=== PATIENT | female | born 1970 | race Caucasian/White ===

== ENCOUNTER → 2021-11-18 14:38 | Outpatient (CLI) | payer OTHER, SELFPAY ==
[2021-11-18 17:22] LABS: Free T4, Direct Thyroxine 1.15 ng/dL (0.78-2.19)
[2021-11-18 17:36] LABS: Thyroid Stimulating Hormone 2.52 uIU/mL (0.47-4.68)
== END ==
PROVIDERS: Physician Assistant Medical; Referring Provider Surgery; Visit Provider Surgery
DX: R53.83 Other fatigue (principal); R63.5 Abnormal weight gain
CPT/HCPCS: 36415; 84439; 84443

== ENCOUNTER → 2022-01-06 10:34 | Outpatient (CLI) | payer OTHER, SELFPAY ==
--- NOTE | 2022-01-06 10:36 | DI.US.S_ITS ---
PROCEDURE: US PELVIC COMPLETE INDICATIONS: PELVIC PAIN TECHNIQUE: Real-time scanning was performed of the pelvic organs, with image documentation. Additional endovaginal scanning was necessary due to incomplete visualization of the adnexal and endometrial structures by transabdominal scanning. COMPARISON: None. FINDINGS: Uterus: Uterus is anteverted and enlarged in size at 8.1 x 6.5 x 4.5 cm. The myometrium is heterogeneous. 2.5 x 2.4 x 2.1 cm subserosal fibroid is seen in right anterior myometrium. 2.3 x 2.4 x 1.8 cm pedunculated subserosal fibroid is seen in left anterior myometrium. 2.9 x 3.7 x 2.6 cm subserosal fibroid is seen in posterior myometrium near midline. The endometrium measures 6.2 mm combined thickness. No gross endometrial mass or fluid is seen. Ovaries: Right ovary is not visualized on this study. No gross right adnexal mass is seen. Left ovary measures 2.6 x 2.2 x 2 cm in size and is within normal limits. Less than 12 follicles can be seen in left ovary. No adnexal masses are seen. Other: No pathologic free abdominal or pelvic fluid. IMPRESSION: 1. Enlarged uterus with multiple uterine fibroids as above. No endometrial mass or fluid. 2. Normal appearing left ovary. Right ovary is not well seen on this study, no gross adnexal mass. We strive to produce accurate, complete, and clear reports of imaging services. To assist us in improving patient care, this report was composed using standard report templates and voice recognition software. Therefore, it may contain abnormal punctuation, insertions and/or omissions. Occasional wrong-word or sound-alike substitutions may occur. Though we review the report and make efforts to correct it, we do recommend that the report be read carefully in proper context to recognize any text inaccuracies. Dictated by: Jasvir Gaviria M.D. on 01/06/2022 at 14:37 Approved by: Jasvir Gaviria M.D. on 01/06/2022 at 14:39
--- NOTE | 2022-01-06 10:36 | DI.MG.S_ITS ---
BILATERAL DIGITAL SCREENING MAMMOGRAM 3D/2D WITH CAD: 01/06/2022 CLINICAL: Routine screening. Baseline exam. No prior exams were available for comparison. The tissue of both breasts is heterogeneously dense. This may lower the sensitivity of mammography. Current study was also evaluated with a Computer Aided Detection (CAD) system. No significant masses, calcifications, or other findings are seen in either breast. IMPRESSION: NEGATIVE There is no mammographic evidence of malignancy. A 1 year screening mammogram is recommended. This exam was interpreted at Station ID: [id number]. NOTE: For mammograms, a report in lay terms will be sent to the patient. Approximately 15% of breast malignancies will not be visualized mammographically. In the management of a palpable breast mass, a negative mammogram must not discourage biopsy of a clinically suspicious lesion. Electronically Signed By: Roosevelt mercado/carlos:01/06/2022 17:46:10 letter sent: Normal Exam ACR BI-RADS Category 1: Negative [id number]
== END ==
PROVIDERS: Referring Provider Physician Assistant Medical; Visit Provider Physician Assistant Medical
DX: Z12.31 Encounter for screening mammogram for malignant neoplasm of breast (principal); D25.2 Subserosal leiomyoma of uterus; R10.2 Pelvic and perineal pain; N85.2 Hypertrophy of uterus
CPT/HCPCS: 76830; 76856; 77063; 77067

== ENCOUNTER → 2022-06-16 14:11 | Outpatient (CLI) | payer OTHER, SELFPAY | PROVIDERS: Visit Provider Obstetrics & Gynecology | DX: N39.3 Stress incontinence (female) (male) (principal); N39.41 Urge incontinence; R10.2 Pelvic and perineal pain | CPT/HCPCS: 87086 ==